=== PATIENT | male | born 1945 | race Caucasian/White ===

== ENCOUNTER 2020-12-26 09:04 | Day surgery (SDC) | payer MEDICARE ==
[2020-12-25 08:51] VITALS: BMI 28.8
[~2020-12-26 09:04] MED LIST: ceFAZolin 1 GM in SODIUM CHLORIDE 0.9% 250 ML IRRIGATION PRN
[2020-12-26] MEDS: SODIUM CHLORIDE 0.9% 1,000 ML IV SCH (09:30)
[2020-12-26 09:39] LABS: Glucose,Whole Blood 97 mg/dL (75-99)
[2020-12-26] MEDS ORDERED: LIDOCAINE 1% INJ 10MG/ML (20 ML MDV) ONE (09:56)
[2020-12-26] MEDS ORDERED: IOPAMIDOL-250 100ML BTL IV ONE (10:16)
[2020-12-26] MEDS ORDERED: fentaNYL (PF) 50 MCG/ML 2 ML AMP ONE (10:30)
[2020-12-26] MEDS: fentaNYL (PF) 50 MCG/ML 2 ML AMP IV ONE ×2 (10:33→10:38)
[2020-12-26] MEDS ORDERED: MIDAZOLAM 2 MG/2 ML VIAL IV ONE (10:33)
[2020-12-26] MEDS: MIDAZOLAM 2 MG/2 ML VIAL IV ONE ×2 (10:33→10:38)
[2020-12-26] MEDS ORDERED: LIDOCAINE 1% INJ 10MG/ML (20 ML MDV) SQ ONE ×3 (10:39→10:45)
[2020-12-26] MEDS ORDERED: ACETAMINOPHEN TAB 325 MG TAB PO PRN ×2 (11:11→11:12)
--- NOTE | 2020-12-26 11:21 | P.PCN ---
Date of Procedure: 12/26/20 Preoperative Diagnosis: Sick sinus syndrome Postoperative Diagnosis: The same Procedure(s) Performed: Axillary venography, single-chamber permanent pacemaker implantation Description of Procedure: HISTORY: This is a 75-year-old gentleman with history of atrial fibrillation and evidence of near syncopes and pauses up to 4 seconds. Patient also has tachybradycardia syndrome. Patient is advised to have permanent pacemaker impla ntation. Patient also has underlying ischemic heart disease requiring beta blockers. CONSENT:I have discussed the risks, benefits and alternative therapies for the above-mentioned procedure and for both sedation/analgesia as well as necessary blood product administration, if indicated, as they pertain to this patient. The patient has indicated understanding and acceptance of the risks and proc edures discussed. PROCEDURE: Patient was brought to the lab in a fasting state. Patient was prepped and draped in the usual fashion. Patient was given IV sedation with fentanyl and Versed. The skin below the left clavicle was infiltrated with lidocaine. An incision was made parallel to deltopectoral groove was deepened until the pectoral fascia was exposed. A pocket was created by blunt dissection and cautery. Axillary venography was performed to delineate the course of the axillary vein. A single venous stick was performed into extrathoracic portion of the axillary vein and a single sheath was advanced over the guidewires and left in subclavian vein. Conscious Sedation: Versed 2mg Fentanyl 50 g Duration 30minutes LEADS: VENTRICULAR: This is manufactured by [employer]. Model number is 5076-58. Serial number is [id number] The ventricular lead is maneuvered l with help of a straight and curved stylets into the left ventricle apical region. Satisfactory position was obtained and threshold measurements were made. THRESHOLDS: VENTRICLE: The minimum patient threshold was 0.5 at pulse width of 0.4. The impedance is 760. The R-wave is 9.2 The leads and pulse generator remained in the pocket after it was washed with antibiotics. Pocket was closed in the usual fashion. The fascia was closed with 2-0 Prolene ,the subcutaneous tissue was closed with 3-0 Prolene and the skin was closed with 4-0 Prolene. PROGRAMMING: MODE: VVIR RATE: 60-130 OUTPUT: Ventricle: 3.5 V FINAL IMPRESSION: #1. Axillary venography #2. Successful implantation of single-chamber pacemaker COMPLICATIONS: None PLAN: Patient will monitored on the telemetry unit. Prophylactic antibacterial continued. Chest x-ray in the morning. If patient is stable, patient will be discharged in 24 hours. We will hold Xarelto and Plavix for 48 hours
--- NOTE | 2020-12-26 12:52 | XR ---
EXAMINATION TYPE: XR chest 1V portable DATE OF EXAM: 12/26/2020 COMPARISON: 04/04/2016 HISTORY: lead placement TECHNIQUE: Single frontal view of the chest is obtained. FINDINGS: Pacer lead tip overlies the expected location of the right ventricle There is no focal air space opacity, pleural effusion, or pneumothorax seen. Postoperative changes overlie the cardiac silhouette size. IMPRESSION: Pacer lead tip overlies the expected location of the right ventricle
[2020-12-27] MEDS: SODIUM CHLORIDE 0.9% 1,000 ML IV SCH (03:33)
--- NOTE | 2020-12-27 07:32 | XR ---
EXAMINATION TYPE: XR chest 2V DATE OF EXAM: 12/27/2020 COMPARISON: Chest x-ray from yesterday HISTORY: Lead placement check. Arrhythmia. TECHNIQUE: Frontal and lateral views of the chest are obtained. FINDINGS: There is no suspicious new focal air space opacity, pleural effusion, or pneumothorax seen . Overlying sternal wires and mediastinal clips redemonstrated. The cardiac silhouette size remains within normal limits. Confirmation of single lead pacemaker terminating in right ventricle on 2 views . The osseous structures remain intact. IMPRESSION: As above. No significant change from one day earlier.
[2020-12-27 07:53] VITALS: BP 138/85; PULSE 70; RESP 16; TEMP 98.2
[2020-12-27] MEDS ORDERED: METOPROLOL TARTRATE 25 MG TAB PO SCH (08:00)
[2020-12-27] MEDS ORDERED: ATORVASTATIN 40 MG TAB PO SCH (09:00)
[2020-12-27] MEDS ORDERED: lisinopriL 10 MG TAB PO SCH (09:00)
[2020-12-27] MEDS ORDERED: MULTIVITAMINS, THERA 1 EACH TAB PO SCH (09:00)
--- NOTE | 2020-12-27 16:10 | P.DS ---
Providers Date of admission: December Attending physician: Lindsay Alfred Primary care physician: Joel Reese - Discharge Diagnosis(es) (1) Sick sinus syndrome Status: Acute (2) Atrial fibrillation Status: Acute (3) HTN (hypertension) Status: Acute (4) Hyperlipemia Status: Acute Hospital Course: This patient with history of atrial fibrillation and sick sinus syndrome has been having symptoms of dizziness and near syncope. Patient was brought in for elective permanent pacemaker implantation. Patient had a single-chamber pacemaker implantation yesterday without any consultations. Patient remained stable overnight. Denied any significant pain. The site looks dry with without any hematoma. Lungs are clear. Heart is regular. Chest x-ray showed proper lead position without any complications. Interrogation showed stable thresholds. Patient is being discharged home. He will continue home medication. He will, however, hold Plavix and Xarelto until tomorrow. Patient is advised to keep the dressing dry until seen in the office in one week. Advised her not to lift, push or pull. Advised not to lift the arm above the shoulder level on the left side. Follow-up in the office with Dr. Retana in one week. Plan - Discharge Summary Discharge Rx Participant: No New Discharge Prescriptions: New Cephalexin [Keflex] 500 mg PO Q8HR 1 Days #10 cap Continue Atorvastatin [Lipitor] 40 mg PO DAILY #30 tab metFORMIN HCL [Glucophage] 500 mg PO BID #60 tab Lisinopril [Zestril] 10 mg PO DAILY Metoprolol Tartrate [Lopressor] 25 mg PO BID Multivitamin/Iron/Folic Acid [Centrum Complete Multivit Tab] 1 each PO DAILY No Action Clopidogrel [Plavix] 75 mg PO DAILY #30 tab Rivaroxaban [Xarelto] 15 mg PO DAILY Discharge Medication List Atorvastatin [Lipitor] 40 mg PO DAILY #30 tab 04/05/16 [Rx] Clopidogrel [Plavix] 75 mg PO DAILY #30 tab 04/05/16 [Rx] metFORMIN HCL [Glucophage] 500 mg PO BID #60 tab 04/05/16 [Rx] Lisinopril [Zestril] 10 mg PO DAILY 12/25/20 [History] Metoprolol Tartrate [Lopressor] 25 mg PO BID 12/25/20 [History] Multivitamin/Iron/Folic Acid [Centrum Complete Multivit Tab] 1 each PO DAILY 12/25/20 [History] Rivaroxaban [Xarelto] 15 mg PO DAILY 12/26/20 [History] Cephalexin [Keflex] 500 mg PO Q8HR 1 Days #10 cap 12/27/20 [Rx] Follow up Appointment(s)/Referral(s): Phil Kent MD [STAFF PHYSICIAN] - 01/05/21 2:00 pm (Device Check appointment is on January 01 at 09:30 with Sesar) Patient Instructions/Handouts: Pacemaker (GEN) Activity/Diet/Wound Care/Special Instructions: [facility] (device clinic) for recheck: Office will call you with appt. date/time. Pt has an appt with Dr. Kent on January 05. 1. Keep dressing clean and dry. Do not remove dressing 2. You can shower and cover dressing with saran or cling wrap. No baths 3. Do not raise your left arm above heart level (6 weeks) 4. No pushing, pulling, heavy lifting, or reaching with left arm. 5. You can use your right arm freely 6. You may perform pendulum exercises to prevent frozen shoulder 7. Call office if you notice any bleeding, swelling, or increased pain 8. Follow up in the office as scheduled Discharge Disposition: HOME SELF-CARE
== END 2020-12-27 11:12 | disposition home or self-care (01) ==
LOC: CATHEP 09:04 → 6NMEDSUR 11:05 → CATHEP 12-27 11:12
PROVIDERS: ATTEND Internal Medicine Cardiovascular Disease
DX: I49.5 Sick sinus syndrome (principal); I48.0 Paroxysmal atrial fibrillation; I25.10 Atherosclerotic heart disease of native coronary artery without angina pectoris; I10 Essential (primary) hypertension; E11.9 Type 2 diabetes mellitus without complications; Z20.822 Contact with and (suspected) exposure to COVID-19; I73.9 Peripheral vascular disease, unspecified; Z95.1 Presence of aortocoronary bypass graft; Z82.49 Family history of ischemic heart disease and other diseases of the circulatory system; Z72.0 Tobacco use; Z79.01 Long term (current) use of anticoagulants; Z79.84 Long term (current) use of oral hypoglycemic drugs; Z79.02 Long term (current) use of antithrombotics/antiplatelets; Z79.899 Other long term (current) drug therapy
CPT/HCPCS: 33207; 87635; 71045; 71046; C1769; C1898; C1786; J2250; J0690; J2001; J3010; Q9966